=== PATIENT | female | born 1970 | race Caucasian/White ===

== ENCOUNTER 2016-11-27 20:45 | Emergency (ER) | payer MEDICAID ==
[2016-11-27 20:56] VITALS: BP 126/73
--- NOTE | 2016-11-27 21:39 | EDM.PDOC ---
ED HPI GENERAL MEDICAL PROBLEM - General Chief Complaint: Lower Extremity Injury/Pain Stated Complaint: R ANKLE PAIN Time Seen by Provider: 11/27/16 21:25 Source of Information: Reports: Patient History Limitations: Reports: No Limitations - History of Present Illness INITIAL COMMENTS - FREE TEXT/NARRATIVE: 46 yo female had R ankle surgery 2 yrs ago in [place] after trauma. This past weekend was at a concert outdoors that required her to stand a lot. Has had pain and swelling since then. Does not recall injury, but was drinking some alcohol. Has not been to her primary care provider or urgent care for this earlier. Onset Date: 11/25/16 Duration: Day(s): Location: Reports: Lower Extremity, Right Quality: Reports: Ache Severity: Mild Improves with: Reports: Immobilization, Rest Worsens with: Reports: Movement Context: Reports: Other (surgery 2 yrs ago, not aware of new injury) Associated Symptoms: Reports: No Other Symptoms Treatments [employer]OR[employer] UMPIRE: Reports: Other (see below) (None) Right Ankle Pain Score (Numeric/FACES): 10 - Related Data Allergies Allergy/AdvReac Type Severity Reaction Status Date / Time Penicillins Allergy Severe Anaphylactic Verified 11/27/16 20:57 Shock peanut Allergy Airway Verified 11/27/16 20:57 Tightness morphine AdvReac Nausea and Verified 11/27/16 20:57 Vomiting Home Meds: Home Meds Albuterol Sulfate [Proair Hfa] 2 puff IH Q6HR PRN 02/04/13 [History] Aspirin 81 mg PO DAILY 03/14/16 [History] Ibuprofen [Motrin] 600 mg PO Q8H PRN 05/17/16 [History] atorvaSTATin [Lipitor] 20 mg PO BEDTIME 05/17/16 [History] Albuterol/Ipratropium [DuoNeb 3.0-0.5 MG/3 ML] 3 ml IN ASDIRECTED 06/16/16 [ History] Past Medical History - Past Health History Medical/Surgical History: Denies Medical/Surgical History HEENT History: Reports: Sinusitis Other HEENT History: brain surgery Cardiovascular History: Reports: Other (See Below) Other Cardiovascular History: abnormal EKG, to have echocardiogram tomorrow Respiratory History: Reports: Asthma 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: , Prolapsed Uterus Musculoskeletal History: Reports: Fracture Neurological History: Reports: Brain Injury, Concussion Psychiatric History: Reports: PTSD Endocrine/Metabolic History: Reports: Obesity/BMI 30+ Hematologic History: Reports: Blood Transfusion(s) Oncologic (Cancer) History: Reports: Ovarian - Infectious Disease History Infectious Disease History: Reports: Chicken Pox, Herpes, Influenza, Mononucleosis - Past Surgical History HEENT Surgical History: Reports: Naso-Sinus Surgery Other HEENT Surgeries/Procedures: BRAIN Female Surgical History: Reports: Section 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, Other (See Below) Musculoskeletal Surgical History: Reports: ORIF Other Musculoskeletal Surgeries/Procedures:: R TIB/FIB FX WITH SURGICAL REPAIR Oncologic Surgical History: Reports: Other (See Below) Social & Family History - Family History Family Medical History: Noncontributory - Tobacco Use Smoking Status *Q: Current Every Day Smoker Years of Tobacco use: 20 Packs/Tins Daily: 0.2 Used Tobacco, but Quit: Yes Month Tobacco Last Used: Apr. Second Hand Smoke Exposure: No - Caffeine Use Caffeine Use: Reports: Coffee, Soda, Tea - Alcohol Use Days Per Week of Alcohol Use: 1 Number of Drinks Per Day: 2 Total Drinks Per Week: 2 - Recreational Drug Use Recreational Drug Use: No Review of Systems - Review of Systems Review Of Systems: See Below Constitutional: Reports: No Symptoms Musculoskeletal: Reports: Joint Pain (R ankle swollen compared to the L ankle. No erythema. No ecchymosis. ) Skin: Reports: Other (well healed surgical scar over the ankle. ) Neurological: Reports: No Symptoms Psychiatric: Reports: No Symptoms ED EXAM, GENERAL - Physical Exam Exam: See Below Exam Limited By: No Limitations General Appearance: Alert, WD/WN, No Apparent Distress Extremities: Pedal Edema (R ankle only), Increased Warmth (slight increased warmth to the R ankle. ). No: Redness Neurological: Alert, Oriented, CN II-XII Intact, Normal Cognition, No Motor/ Sensory Deficits Psychiatric: Normal Affect, Normal Mood Skin Exam: Warm, Dry, Intact, Normal Color, No Rash, Other (well healed surgical scar to the medial R ankle. ) Lymphatic: No Adenopathy Course - Vital Signs Text/Narrative:: R ankle X-ray-no acute changes. Last Recorded V/S: Last Vital Signs Temp 37.4 C 11/27/16 20:54 Pulse 94 11/27/16 20:54 Resp 15 11/27/16 20:54 BP 126/73 11/27/16 20:54 Pulse Ox 97 11/27/16 20:54 - Orders/Labs/Meds Orders: Active Orders 24 hr Category Date Time Status Ankle Min 3V Rt [CR] Stat Exams 11/27/16 21:32 Taken Departure - Departure Time of Disposition: 22:10 Disposition: Home, Self-Care 01 Condition: Good Clinical Impression: Right ankle strain Qualifiers: Encounter type: initial encounter Qualified Code(s): S96.911A - Strain of unspecified muscle and tendon at ankle and foot level, right foot, initial encounter - Discharge Information Referrals: Alma Flores CNM [Primary Care Provider] - Forms: ED Department Discharge Care Plan Goals: GOMEZ for support/compression. Ibuprofen 600 mg every 6 hrs with food. Elevate. F/ U with your orthopedic doctor for recheck, take X-ray to appt. - My Orders Last 24 Hours: My Active Orders 11/27/16 21:32 Ankle Min 3V Rt [CR] Stat - Assessment/Plan Last 24 Hours: My Active Orders 11/27/16 21:32 Ankle Min 3V Rt [CR] Stat
--- NOTE | 2016-11-28 09:45 | CR ---
Right ankle There is degenerative joint space loss throughout the ankle. There is spurring of the medial malleol us. There is lateral soft tissue swelling. There is no evidence of fracture. There is a calcaneal sp ur. Impression: 1. Lateral soft tissue swelling without fracture. 2. Moderate osteoarthritis.
== END 2016-11-27 22:22 | disposition home or self-care (01) ==
LOC: JP.ED 20:45
DX: S66.911A Strain of unspecified muscle, fascia and tendon at wrist and hand level, right hand, initial encounter (principal); F17.210 Nicotine dependence, cigarettes, uncomplicated; J45.909 Unspecified asthma, uncomplicated; E66.9 Obesity, unspecified; Z88.5 Allergy status to narcotic agent; Z79.82 Long term (current) use of aspirin; Z79.899 Other long term (current) drug therapy; Z98.890 Other specified postprocedural states; Z91.018 Allergy to other foods; Z88.0 Allergy status to penicillin; Z91.010 Allergy to peanuts; X50.1XXA Overexertion from prolonged static or awkward postures, initial encounter
CPT/HCPCS: 73610-26-RT; 73610-RT; 99284

== ENCOUNTER 2017-09-22 16:57 | Emergency (ER) | payer MEDICAID ==
[2017-09-22] MEDS ORDERED: Albuterol/Ipratropium 3.0-0.5 MG/3 ML Neb Soln NEB ONE (17:06)
[2017-09-22 17:14] VITALS: BP 149/95
--- NOTE | 2017-09-22 17:44 | EDM.PDOC ---
ED HPI GENERAL MEDICAL PROBLEM - General Chief Complaint: Asthma Stated Complaint: ASTHMA ATTACK, SOB Time Seen by Provider: 09/22/17 17:15 Source of Information: Reports: Patient History Limitations: Reports: No Limitations - History of Present Illness INITIAL COMMENTS - FREE TEXT/NARRATIVE: 47-year-old female who has had a long history of asthma, allergies to animals and environmental allergies possibly has had an increase in asthma over the past several weeks. She was placed on a course of prednisone a few weeks ago and did respond but has started getting worse again over the last 5 days, ran out of her albuterol inhaler 3 days ago and is very wheezy. Persistent tight cough as well. No fevers or chills, no chest pain, no nausea or vomiting. She has stopped smoking. Onset: Gradual Severity: Moderate Associated Symptoms: Reports: No Other Symptoms - Related Data Allergies Allergy/AdvReac Type Severity Reaction Status Date / Time Penicillins Allergy Severe Anaphylactic Verified 09/22/17 17:14 Shock peanut Allergy Airway Verified 09/22/17 17:14 Tightness morphine AdvReac Nausea and Verified 09/22/17 17:14 Vomiting Home Meds: Home Meds Albuterol Sulfate [Proair Hfa] 2 puff IH Q6HR PRN 02/04/13 [History] Ibuprofen [Motrin] 600 mg PO Q8H PRN 05/17/16 [History] Albuterol/Ipratropium [DuoNeb 3.0-0.5 MG/3 ML] 3 ml IN ASDIRECTED 06/16/16 [ History] Past Medical History - Past Health History Medical/Surgical History: Denies Medical/Surgical History HEENT History: Reports: Sinusitis Other HEENT History: brain surgery Cardiovascular History: Reports: Other (See Below) Other Cardiovascular History: abnormal EKG, to have echocardiogram tomorrow Respiratory History: Reports: Asthma 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: , Prolapsed Uterus Musculoskeletal History: Reports: Fracture Neurological History: Reports: Brain Injury, Concussion Psychiatric History: Reports: PTSD Endocrine/Metabolic History: Reports: Obesity/BMI 30+ Hematologic History: Reports: Blood Transfusion(s) Oncologic (Cancer) History: Reports: Ovarian - Infectious Disease History Infectious Disease History: Reports: Chicken Pox, Herpes, Influenza, Mononucleosis - Past Surgical History HEENT Surgical History: Reports: Naso-Sinus Surgery Other HEENT Surgeries/Procedures: BRAIN Female Surgical History: Reports: Section 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, Other (See Below) Musculoskeletal Surgical History: Reports: ORIF Other Musculoskeletal Surgeries/Procedures:: R TIB/FIB FX WITH SURGICAL REPAIR Oncologic Surgical History: Reports: Other (See Below) Social & Family History - Family History Family Medical History: Noncontributory - Tobacco Use Smoking Status *Q: Former Smoker Used Tobacco, but Quit: Yes Month/Year Tobacco Last Used: 0 - Caffeine Use Caffeine Use: Reports: Coffee, Soda, Tea - Recreational Drug Use Recreational Drug Use: No ED ROS GENERAL - Review of Systems Review Of Systems: See Below Constitutional: Denies: Fever, Chills HEENT: Denies: Throat Pain Respiratory: Reports: Shortness of Breath, Cough. Denies: Sputum, Hemoptysis Cardiovascular: Denies: Chest Pain GI/Abdominal: Denies: Abdominal Pain, Nausea, Vomiting Skin: Reports: No Symptoms Neurological: Reports: No Symptoms. Denies: Headache ED EXAM, GENERAL - Physical Exam Exam: See Below Exam Limited By: No Limitations General Appearance: Alert, Anxious Throat/Mouth: Normal Inspection Head: Atraumatic Respiratory/Chest: No Respiratory Distress (Mild increased respiratory effort but not distressed), Wheezing (Diffuse expiratory wheezes are present) Cardiovascular: Regular Rate, Rhythm. No: Tachycardia Neurological: Alert, Oriented Skin Exam: Warm, Dry Course - Vital Signs Last Recorded V/S: Last Vital Signs Temp 95.5 F 09/22/17 17:13 Pulse 93 09/22/17 17:13 Resp 16 09/22/17 17:13 BP 149/95 H 09/22/17 17:13 Pulse Ox 99 09/22/17 17:13 - Orders/Labs/Meds Orders: Active Orders 24 hr Category Date Time Status RT Aerosol Therapy [RC] ASDIRECTED Care 09/22/17 17:06 Active Meds: Medications Discontinued Medications Generic Name Dose Route Start Last Admin Trade Name Freq PRN Reason Stop Dose Admin Albuterol/Ipratropium 3 ml 09/22/17 17:06 09/22/17 17:12 Duoneb 3.0-0.5 Mg/3 Ml NEB 09/22/17 17:07 3 ml ONETIME ONE Administration - Re-Assessments/Exams Free Text/Narrative Re-Assessment/Exam: 05/20/18 17:42 Patient was given a DuoNeb and responded very well, most wheezing resolved and she required no extra effort. She'll be discharged on a Medrol Dosepak and albuterol inhaler but needs to find out what is the trigger, may need allergy testing or further evaluation. Departure - Departure Time of Disposition: 17:49 Disposition: Home, Self-Care 01 Condition: Good Clinical Impression: Chronic asthma with acute exacerbation Qualifiers: Asthma severity: moderate Asthma persistence: persistent Qualified Code(s): J45.41 - Moderate persistent asthma with (acute) exacerbation - Discharge Information Instructions: Asthma, Adult, [id number] Referrals: PCP,None [Primary Care Provider] - Forms: ED Department Discharge Care Plan Goals: Continue your current medications, use Medrol Dosepak to suppress asthma and also the inhaler as needed. Return anytime if worsening or concerns, or consider rechecking in 2-3 days if not improving satisfactorily. - My Orders Last 24 Hours: My Active Orders 09/22/17 17:06 RT Aerosol Therapy [RC] ASDIRECTED - Assessment/Plan Last 24 Hours: My Active Orders 09/22/17 17:06 RT Aerosol Therapy [RC] ASDIRECTED
== END 2017-09-22 17:49 | disposition home or self-care (01) ==
LOC: JP.ED 16:57
DX: J45.41 Moderate persistent asthma with (acute) exacerbation (principal); Z87.891 Personal history of nicotine dependence; Z88.0 Allergy status to penicillin; Z91.010 Allergy to peanuts; Z88.5 Allergy status to narcotic agent
CPT/HCPCS: 94640; 99285; J7620

== ENCOUNTER 2018-06-29 18:21 | Emergency (ER) | payer MEDICAID ==
[2018-06-29] MEDS ORDERED: Albuterol/Ipratropium 3.0-0.5 MG/3 ML Neb Soln NEB ONE (18:25)
[2018-06-29] MEDS ORDERED: Sodium Chloride 0.9% 10 ML Syringe FLUSH PRN ×2 (18:27)
--- NOTE | 2018-06-29 18:49 | EDM.PDOC ---
ED HPI GENERAL MEDICAL PROBLEM - General Chief Complaint: Respiratory Problem Stated Complaint: ASTHMA ATTACK Time Seen by Provider: 06/29/18 18:27 Source of Information: Reports: Patient, Family, RN Notes Reviewed History Limitations: Reports: No Limitations - History of Present Illness INITIAL COMMENTS - FREE TEXT/NARRATIVE: 48-year-old female presents to the emergency department today with complaint of shortness of breath, she has a known history of asthma has been out of her breathing medications for about 24 hours, limited history and physical secondary to respiratory distress - Related Data Allergies Allergy/AdvReac Type Severity Reaction Status Date / Time Penicillins Allergy Severe Anaphylactic Verified 06/29/18 18:31 Shock peanut Allergy Airway Verified 06/29/18 18:31 Tightness morphine AdvReac Nausea and Verified 06/29/18 18:31 Vomiting Home Meds: Home Meds Albuterol Sulfate [Proair Hfa] 2 puff IH Q6HR PRN 02/04/13 [History] Cetirizine [ZyrTEC] 1 tab PO DAILY 03/30/18 [History] Past Medical History HEENT History: Reports: Sinusitis Other HEENT History: brain surgery Cardiovascular History: Reports: Other (See Below) Other Cardiovascular History: abnormal EKG Respiratory History: Reports: Asthma Gastrointestinal History: Reports: Other (See Below) Other Gastrointestinal History: ulcers Genitourinary History: Reports: Urinary Incontinence 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: , Prolapsed Uterus Musculoskeletal History: Reports: Fracture Neurological History: Reports: Brain Injury, Concussion Psychiatric History: Reports: PTSD Endocrine/Metabolic History: Reports: Obesity/BMI 30+ Hematologic History: Reports: Blood Transfusion(s) Oncologic (Cancer) History: Reports: Ovarian - Infectious Disease History Infectious Disease History: Reports: Chicken Pox - Past Surgical History Head Surgeries/Procedures: Reports: None HEENT Surgical History: Reports: Naso-Sinus Surgery Other HEENT Surgeries/Procedures: BRAIN Cardiovascular Surgical History: Reports: None Respiratory Surgical History: Reports: None GI Surgical History: Reports: Hernia, Abdominal Female Surgical History: Reports: Section, Other (See Below) Other Female Surgeries/Procedures: bladder repair. 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 Musculoskeletal Surgical History: Reports: ORIF Other Musculoskeletal Surgeries/Procedures:: R TIB/FIB FX WITH SURGICAL REPAIR Oncologic Surgical History: Reports: None Social & Family History - Family History Family Medical History: Noncontributory - Tobacco Use Smoking Status *Q: Current Every Day Smoker Years of Tobacco use: 34 Packs/Tins Daily: 0.5 - Caffeine Use Caffeine Use: Reports: Coffee - Recreational Drug Use Recreational Drug Use: No ED ROS GENERAL - Review of Systems Review Of Systems: ROS reveals no pertinent complaints other than HPI. ED EXAM, GENERAL - Physical Exam Exam: See Below Free Text/Narrative:: On initial exam breath sounds severely decreased limited air movement no wheezing appreciated cardiovascular tachycardic rhythm S1 and S2 Exam Limited By: Respiratory Distress General Appearance: Moderate Distress Course - Vital Signs Last Recorded V/S: Last Vital Signs Temp 98.6 F 06/29/18 18:37 Pulse 105 H 06/29/18 18:37 Resp 16 06/29/18 18:37 BP Pulse Ox 95 06/29/18 18:37 - Orders/Labs/Meds Orders: Active Orders 24 hr Category Date Time Status Peripheral IV Care [RC] . DIRECTED Care 06/29/18 18:29 Inactive RT Aerosol Therapy [RC] ASDIRECTED Care 06/29/18 18:25 Active Sodium Chloride 0.9% [Saline Flush] Med 06/29/18 18:27 Active 10 ml FLUSH ASDIRECTED PRN Peripheral IV Insertion Adult [OM.PC] Urgent Oth 06/29/18 18:27 Ordered Medication Orders Sodium Chloride (Saline Flush) 10 ml FLUSH ASDIRECTED PRN PRN Reason: Keep Vein Open Labs: Laboratory Tests 06/29/18 06/29/18 Range/Units 18:41 18:41 WBC 7.7 (4.5-11.0) K/uL RBC 4.91 (3.30-5.50) M/uL Hgb 13.7 (12.0-15.0) g/dL Hct 42.1 (36.0-48.0) % MCV 86 (80-98) fL MCH 28 (27-31) pg MCHC 33 (32-36) % Plt Count 259 (150-400) K/uL Neut % (Auto) 45 (36-66) % Lymph % (Auto) 41 (24-44) % [place] % (Auto) 7 H (2-6) % Eos % (Auto) 6 H (2-4) % Baso % (Auto) 1 (0-1) % Sodium 145 (140-148) mmol/L Potassium 4.1 (3.6-5.2) mmol/L Chloride 107 (100-108) mmol/L Carbon Dioxide 26 (21-32) mmol/L Anion Gap 11.8 (5.0-14.0) mmol/L BUN 14 (7-18) mg/dL Creatinine 1.0 (0.6-1.0) mg/dL Est Cr Clr Drug Dosing 60.70 mL/min Estimated GFR (MDRD) 60 (>60) Glucose 118 H (74-106) mg/dL Calcium 9.5 (8.5-10.1) mg/dL Meds: Medications Generic Name Dose Route Start Last Admin Trade Name Freq PRN Reason Stop Dose Admin Sodium Chloride 10 ml 06/29/18 18:27 Saline Flush FLUSH ASDIRECTED PRN Keep Vein Open Discontinued Medications Generic Name Dose Route Start Last Admin Trade Name Freq PRN Reason Stop Dose Admin Albuterol/Ipratropium 3 ml 06/29/18 18:25 06/29/18 18:29 Duoneb 3.0-0.5 Mg/3 Ml NEB 06/29/18 18:26 3 ml ONETIME ONE Administration Sodium Chloride 10 ml 06/29/18 18:27 Saline Flush FLUSH ASDIRECTED PRN Keep Vein Open Departure - Departure Time of Disposition: 19:20 Disposition: Home, Self-Care 01 Condition: Fair Clinical Impression: Asthma exacerbation Qualifiers: Asthma severity: moderate Asthma persistence: persistent Qualified Code(s): J45.41 - Moderate persistent asthma with (acute) exacerbation - Discharge Information Referrals: PCP,None [Primary Care Provider] - Forms: ED Department Discharge Additional Instructions: Continue to use albuterol as needed for shortness breath, please follow-up with your primary care in the next 3-5 days if no improvement - My Orders Last 24 Hours: My Active Orders 06/29/18 18:27 Sodium Chloride 0.9% [Saline Flush] 10 ml FLUSH ASDIRECTED PRN Peripheral IV Insertion Adult [OM.PC] Urgent 06/29/18 18:29 Peripheral IV Care [RC] . DIRECTED - Assessment/Plan Last 24 Hours: My Active Orders 06/29/18 18:27 Sodium Chloride 0.9% [Saline Flush] 10 ml FLUSH ASDIRECTED PRN Peripheral IV Insertion Adult [OM.PC] Urgent 06/29/18 18:29 Peripheral IV Care [RC] . DIRECTED Plan: Assessment Acuity = acute Site and laterality = asthma exacerbation Etiology = unknown etiology Manifestations = none Location of injury = Home Lab values = CBC, BMP, chest x-ray all unremarkable Plan She had good improvement with DuoNeb provided reexamination no wheezing was appreciated refill of medications of albuterol for her neb treatment at home she does have refill of her other breathing treatment however they will not be available to the first of the month follow-up primary care 3-5 days if not better This note was dictated using [employer] voice recognition software please call with any questions on syntax or grammar.
--- NOTE | 2018-06-29 19:01 | CRLCR ---
INDICATION: Shortness of breath. TECHNIQUE: Chest 2 views. COMPARISON: 02/04/2016 FINDINGS: Cardiovascular and mediastinum: Heart size is normal. Pulmonary vasculature is normal. Mediastinum is within normal limits. Lungs and pleural spaces: Lungs are clear. No pleural effusion. No pneumothorax. Bones and soft tissues: No acute findings. Anterior end plate osteophytic changes in the lower thoracic spine. IMPRESSION: No acute pulmonary process. Dictated by Bismark Etienne MD @ 06/29/2018 6:59:29 PM Dictated by: Bismark Etienne MD @ 06/29/2018 18:59:38 (Electronically Signed)
== END 2018-06-29 19:47 | disposition home or self-care (01) ==
LOC: JP.ED 18:21
DX: J45.41 Moderate persistent asthma with (acute) exacerbation (principal); E66.9 Obesity, unspecified; F17.210 Nicotine dependence, cigarettes, uncomplicated; Z88.0 Allergy status to penicillin; Z91.010 Allergy to peanuts; Z88.5 Allergy status to narcotic agent
CPT/HCPCS: 36415; 71046; 80048; 85025; 94640; 99285-25; J7620-GY

== ENCOUNTER 2018-08-19 18:55 | Emergency (ER) | payer MEDICAID ==
[2018-08-19 19:15] VITALS: BP 145/78
--- NOTE | 2018-08-19 19:33 | EDM.PDOC ---
ED HPI GENERAL MEDICAL PROBLEM - General Chief Complaint: Abdominal Pain Stated Complaint: ABD PAIN Time Seen by Provider: 08/19/18 19:20 Source of Information: Reports: Patient, Old Records, RN History Limitations: Reports: No Limitations - History of Present Illness INITIAL COMMENTS - FREE TEXT/NARRATIVE: 48 yo female here with R sided abdominal pain that began this afternoon following a large BM. The BM was otherwise normal. No fever, nausea or vomiting. Her only abdominal surgery was a . She took nothing for the pain. The pain seems to wax and wane. Pain is increased with walking or coughing. Has not ever had colonoscopy. Not aware of a FHx of colon CA. Has had ovarian cysts in the past. Had a tubal ligation with her last . Not currently sexually active. 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 (see below) (none) Lower Abdomen Pain Score (Numeric/FACES): 10 - Related Data Allergies Allergy/AdvReac Type Severity Reaction Status Date / Time Penicillins Allergy Severe Anaphylactic Verified 08/19/18 19:15 Shock peanut Allergy Airway Verified 08/19/18 19:15 Tightness morphine AdvReac Nausea and Verified 08/19/18 19:15 Vomiting Home Meds: Home Meds Albuterol Sulfate [Proair Hfa] 2 puff IH Q6HR PRN 02/04/13 [History] Cetirizine [ZyrTEC] 1 tab PO DAILY 03/30/18 [History] Past Medical History - Past Health History Medical/Surgical History: Denies Medical/Surgical History HEENT History: Reports: Sinusitis Other HEENT History: brain surgery Cardiovascular History: Reports: Other (See Below) Other Cardiovascular History: abnormal EKG Respiratory History: Reports: Asthma Gastrointestinal History: Reports: Other (See Below) Other Gastrointestinal History: ulcers Genitourinary History: Reports: Urinary Incontinence 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 OF 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 History: Reports: , Prolapsed Uterus Musculoskeletal History: Reports: Fracture Neurological History: Reports: Brain Injury, Concussion Psychiatric History: Reports: PTSD Endocrine/Metabolic History: Reports: Obesity/BMI 30+ Hematologic History: Reports: Blood Transfusion(s) Oncologic (Cancer) History: Reports: Ovarian - Infectious Disease History Infectious Disease History: Reports: Chicken Pox - Past Surgical History Head Surgeries/Procedures: Reports: None HEENT Surgical History: Reports: Naso-Sinus Surgery Other HEENT Surgeries/Procedures: BRAIN Cardiovascular Surgical History: Reports: None Respiratory Surgical History: Reports: None GI Surgical History: Reports: Hernia, Abdominal Female Surgical History: Reports: Section, Other (See Below) Other Female Surgeries/Procedures: bladder repair. 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 Musculoskeletal Surgical History: Reports: ORIF Other Musculoskeletal Surgeries/Procedures:: R TIB/FIB FX WITH SURGICAL REPAIR Oncologic Surgical History: Reports: None Social & Family History - Family History Family Medical History: Noncontributory - Tobacco Use Smoking Status *Q: Current Status Unknown - Caffeine Use Caffeine Use: Reports: Coffee - Recreational Drug Use Drug Use in Last 12 Months: No ED ROS GENERAL - Review of Systems Review Of Systems: See Below Constitutional: Reports: No Symptoms HEENT: Reports: No Symptoms Respiratory: Reports: No Symptoms Cardiovascular: Reports: No Symptoms Endocrine: Reports: No Symptoms GI/Abdominal: Reports: Abdominal Pain. Denies: Bloody Stool, Constipation, Diarrhea, Decreased Appetite, Distension, Hematemesis, Hematochezia, Melena, Nausea, Vomiting : Reports: No Symptoms Musculoskeletal: Reports: No Symptoms Skin: Reports: No Symptoms Neurological: Reports: No Symptoms Psychiatric: Reports: No Symptoms ED EXAM, GI/ABD - Physical Exam Exam: See Below Exam Limited By: No Limitations General Appearance: Alert, WD/WN, No Apparent Distress Eyes: Bilateral: Normal Appearance Ears: Normal External Exam, Normal Canal, Hearing Grossly Normal Nose: Normal Inspection, No Blood Throat/Mouth: Normal Inspection, Normal Lips, Normal Oropharynx, Normal Voice, No Airway Compromise Head: Atraumatic, Normocephalic Neck: Normal Inspection Respiratory/Chest: No Respiratory Distress, Lungs Clear, Normal Breath Sounds, No Accessory Muscle Use Cardiovascular: Regular Rate, Rhythm, No Edema GI/Abdominal Exam: Normal Bowel Sounds, Soft, No Distention, Rebound (mild), Tender (suprapubic, RLQ and R lateral abdomen.). No: Non-Tender, Guarding, Rigid Back Exam: Normal Inspection. No: CVA Tenderness (R), CVA Tenderness (L) Extremities: Normal Inspection, Normal Range of Motion, Non-Tender, No Pedal Edema Neurological: Alert, Oriented, CN II-XII Intact, Normal Cognition, No Motor/ Sensory Deficits Psychiatric: Normal Affect, Normal Mood Skin Exam: Warm, Dry, Intact, Normal Color, No Rash Lymphatic: No Adenopathy Course - Vital Signs Last Recorded V/S: Last Vital Signs Temp 36.9 C 08/19/18 19:12 Pulse 94 08/19/18 19:12 Resp 12 08/19/18 19:12 BP 145/78 H 08/19/18 19:12 Pulse Ox 97 08/19/18 19:12 - Orders/Labs/Meds Orders: Active Orders 24 hr Category Date Time Status Iopamidol [Isovue-300 (61%)] Med 08/19/18 20:30 Active 130 ml IV . DIRECTED Sodium Chloride 0.9% [Normal Saline] 80 ml Med 08/19/18 20:30 Active IV ASDIRECTED Sodium Chloride 0.9% [Saline Flush] Med 08/19/18 20:07 Active 10 ml FLUSH ASDIRECTED PRN Saline Lock Insert [OM.PC] Routine Oth 08/19/18 20:07 Ordered Medication Orders Sodium Chloride (Normal Saline) 80 mls @ 3 mls/sec IV ASDIRECTED ALIN Last Admin: 08/19/18 20:39 Dose: 3 mls/sec Iopamidol (Isovue-300 (61%)) 130 ml IV . DIRECTED ALIN Last Admin: 08/19/18 20:39 Dose: 130 ml Sodium Chloride (Saline Flush) 10 ml FLUSH ASDIRECTED PRN PRN Reason: Keep Vein Open Last Admin: 08/19/18 20:39 Dose: 10 ml Labs: Laboratory Tests 08/19/18 08/19/18 08/19/18 Range/Units 19:27 19:38 19:38 WBC 12.5 H (4.5-11.0) K/uL RBC 4.85 (3.30-5.50) M/uL Hgb 13.5 (12.0-15.0) g/dL Hct 42.1 (36.0-48.0) % MCV 87 (80-98) fL MCH 28 (27-31) pg MCHC 32 (32-36) % Plt Count 302 (150-400) K/uL Sodium 138 L (140-148) mmol/L Potassium 3.6 (3.6-5.2) mmol/L Chloride 103 (100-108) mmol/L Carbon Dioxide 26 (21-32) mmol/L Anion Gap 12.6 (5.0-14.0) mmol/L BUN 14 (7-18) mg/dL Creatinine 0.8 (0.6-1.0) mg/dL Est Cr Clr Drug Dosing 75.88 mL/min Estimated GFR (MDRD) > 60 (>60) Glucose 94 (74-106) mg/dL Calcium 9.1 (8.5-10.1) mg/dL C-Reactive Protein 0.16 (0.0-0.3) mg/dL Urine Color Yellow Urine Appearance Cloudy Urine pH 5.0 (4.5-8.0) Ur Specific [place] 1.020 (1.008-1.030) Urine Protein Trace (NEGATIVE) mg/dL Urine Glucose (UA) Normal (NEGATIVE) mg/dL Urine Ketones Negative (NEGATIVE) mg/dL Urine Occult Blood Trace (NEGATIVE) Urine Nitrite Negative (NEGATIVE) Urine Bilirubin Small (NEGATIVE) Urine Urobilinogen 1 (NORMAL) mg/dL Ur Leukocyte Esterase Negative (NEGATIVE) Urine RBC 0-5 (0-5) Urine WBC 0-5 (0-5) Ur Epithelial Cells Many Amorphous Sediment Few Urine Bacteria Moderate Urine Mucus Few Meds: Medications Generic Name Dose Route Start Last Admin Trade Name Abdullahi PRN Reason Stop Dose Admin Sodium Chloride 80 mls @ 3 mls/sec 08/19/18 20:30 08/19/18 20:39 Normal Saline IV 3 mls/sec ASDIRECTED ALIN Administration Iopamidol 130 ml 08/19/18 20:30 08/19/18 20:39 Isovue-300 (61%) IV 130 ml . DIRECTED ALIN Administration Sodium Chloride 10 ml 08/19/18 20:07 08/19/18 20:39 Saline Flush FLUSH 10 ml ASDIRECTED PRN Administration Keep Vein Open Discontinued Medications Generic Name Dose Route Start Last Admin Trade Name Abdullahi PRN Reason Stop Dose Admin Ketorolac Tromethamine 60 mg 08/19/18 19:26 08/19/18 19:50 Toradol IM 08/19/18 19:27 60 mg ONETIME ONE Administration - Radiology Interpretation Free Text/Narrative:: Abd/pelvis CT with IV contrast-R ovarian cyst, mildly enlarged appendix. CT Results Date: 08/19/18 Departure - Departure Time of Disposition: 21:33 Disposition: Home, Self-Care 01 Condition: Fair Clinical Impression: Ovarian cyst Qualifiers: Laterality: right Qualified Code(s): N83.201 - Unspecified ovarian cyst, right side - Discharge Information *PRESCRIPTION DRUG MONITORING PROGRAM REVIEWED*: No *COPY OF PRESCRIPTION DRUG MONITORING REPORT IN PATIENT ANTONIO: No Instructions: Ovarian Cyst, [id number] Referrals: Alma Flores CNM [Primary Care Provider] - Forms: ED Department Discharge Additional Instructions: Take acetaminophen 1000 mg every 6 hrs as needed. Ibuprofen 600 mg every 6 hrs with food as needed, next dose after 2:30 am tonight. NPO after midnight. Recheck with your provider tomorrow morning. - My Orders Last 24 Hours: My Active Orders 08/19/18 20:07 Sodium Chloride 0.9% [Saline Flush] 10 ml FLUSH ASDIRECTED PRN Saline Lock Insert [OM.PC] Routine 08/19/18 20:30 Iopamidol [Isovue-300 (61%)] 130 ml IV . DIRECTED Sodium Chloride 0.9% [Normal Saline] 80 ml IV ASDIRECTED - Assessment/Plan Last 24 Hours: My Active Orders 08/19/18 20:07 Sodium Chloride 0.9% [Saline Flush] 10 ml FLUSH ASDIRECTED PRN Saline Lock Insert [OM.PC] Routine 08/19/18 20:30 Iopamidol [Isovue-300 (61%)] 130 ml IV . DIRECTED Sodium Chloride 0.9% [Normal Saline] 80 ml IV ASDIRECTED
[2018-08-19] MEDS: Ketorolac 60 MG/2 ML SDV IM ONE (19:50)
[2018-08-19] MEDS: Sodium Chloride 0.9% 80 ML IV SCH (20:39)
[2018-08-19] MEDS: Iopamidol 612 MG/ML 150 ML Bottle IV SCH (20:39)
[2018-08-19] MEDS: Sodium Chloride 0.9% 10 ML Syringe FLUSH PRN (20:39)
--- NOTE | 2018-08-19 21:27 | CRLCT ---
INDICATION: Right-sided abdominal pain TECHNIQUE: CT abdomen and pelvis acquired with 130 cc Isovue-300 intravenous contrast. COMPARISON: Abdomen and pelvis CT 02/12/2018 FINDINGS: Lower chest: Stable 3 millimeter subpleural nodule left lower lobe. Calcified granuloma right lower lobe. Liver: Unremarkable. Normal in size and attenuation. No masses. Gallbladder and bile ducts: Unremarkable. No stones or inflammation. No biliary dilatation. Pancreas: Unremarkable. No mass or inflammation. Spleen: Unremarkable. Normal in size. No masses. Adrenal glands: Right adrenal nodule measuring 9 millimeters, no change. Kidneys: Unremarkable. No masses, stones, or hydronephrosis. GI tract: The stomach is unremarkable. There are no dilated loops of large or small intestine. The appendix is mildly prominent measuring 9 millimeters although without definite adjacent inflammation. Vasculature: Unremarkable. Pelvis: The bladder is unremarkable the uterus is anteverted. Note is made of some high density along the margin of the right ovary, a right ovarian cyst measuring 2.1 centimeters and mildly increased density fluid extending from the right adnexa into the pelvic cul-de-sac. Bones: Mild degenerative disc disease lumbar spine. IMPRESSION: 1. Right ovarian cyst measuring 2.1 centimeters with right ovarian hyperemia and some high-density fluid in the right adnexa extending to the pelvic cul-de-sac. Appearance suggests minimal adjacent hemoperitoneum, most commonly secondary to hemorrhagic cyst rupture in a non- patient. 2. Mild dilation of the appendix. This is a bit equivocal although subjectively this is more likely physiologic for this patient as the appendix was mildly dilated on the 2018 examination as well and no clear localizing inflammation is seen. 3. Stable right adrenal nodule. Please note that all CT scans at this facility use dose modulation, iterative reconstruction, and/or weight-based dosing when appropriate to reduce radiation dose to as low as reasonably achievable. Dictated by Beto Vega MD @ Aug 19 2018 9:13PM Signed by Dr. Beto Vega @ Aug 19 2018 9:25PM
== END 2018-08-19 21:44 | disposition home or self-care (01) ==
LOC: JP.ED 18:55
DX: N83.201 Unspecified ovarian cyst, right side (principal); Z88.0 Allergy status to penicillin; Z91.010 Allergy to peanuts
CPT/HCPCS: 36415; 74177; 80048; 81001; 85027; 86140; 96372; 99284; J1885; J7030

== ENCOUNTER 2018-12-11 20:54 | Emergency (ER) | payer MEDICAID ==
[2018-12-11] MEDS ORDERED: Albuterol 0.083% 2.5 MG/3 ML Neb Soln NEB ONE (21:16)
--- NOTE | 2018-12-11 22:05 | EDM.PDOC ---
ED HPI GENERAL MEDICAL PROBLEM - General Chief Complaint: Respiratory Problem Stated Complaint: TROUBLE BREATHING Time Seen by Provider: 12/11/18 22:09 Source of Information: Reports: Patient History Limitations: Reports: No Limitations - History of Present Illness INITIAL COMMENTS - FREE TEXT/NARRATIVE: pt arrived with a history of progressive wheezing. She feels like her inhaler has run out earlier than it should. She feels like it was not completely full when she got it. Onset: Today, Other (pt got very tight today. She does have some kittens in the house which she feels may have her to get quite tight. ) Duration: Hour(s): Location: Reports: Chest Associated Symptoms: Reports: Cough, Shortness of Breath, Other (pt is very wheezy. ) - Related Data Allergies Allergy/AdvReac Type Severity Reaction Status Date / Time Penicillins Allergy Severe Anaphylactic Verified 12/11/18 21:06 Shock peanut Allergy Airway Verified 12/11/18 21:06 Tightness morphine AdvReac Nausea and Verified 12/11/18 21:06 Vomiting Home Meds: Home Meds Albuterol Sulfate [Proair Hfa] 2 puff IH Q6HR PRN 02/04/13 [History] Cetirizine [ZyrTEC] 1 tab PO DAILY 03/30/18 [History] Past Medical History - Past Health History Medical/Surgical History: Denies Medical/Surgical History HEENT History: Reports: Sinusitis Other HEENT History: brain surgery Cardiovascular History: Reports: Other (See Below) Other Cardiovascular History: abnormal EKG Respiratory History: Reports: Asthma, Bronchitis, Recurrent Gastrointestinal History: Reports: Other (See Below) Other Gastrointestinal History: ulcers Genitourinary History: Reports: Urinary Incontinence 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: , Prolapsed Uterus Musculoskeletal History: Reports: Fracture Neurological History: Reports: Brain Injury, Concussion Psychiatric History: Reports: PTSD Endocrine/Metabolic History: Reports: Obesity/BMI 30+ Hematologic History: Reports: Blood Transfusion(s) Oncologic (Cancer) History: Reports: Ovarian - Infectious Disease History Infectious Disease History: Reports: Chicken Pox - Past Surgical History Head Surgeries/Procedures: Reports: None HEENT Surgical History: Reports: Naso-Sinus Surgery Other HEENT Surgeries/Procedures: BRAIN Cardiovascular Surgical History: Reports: None Respiratory Surgical History: Reports: None GI Surgical History: Reports: Hernia, Abdominal Female Surgical History: Reports: Section, Other (See Below) Other Female Surgeries/Procedures: bladder repair. 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 Musculoskeletal Surgical History: Reports: ORIF Other Musculoskeletal Surgeries/Procedures:: R TIB/FIB FX WITH SURGICAL REPAIR Oncologic Surgical History: Reports: None Social & Family History - Family History Family Medical History: Noncontributory - Tobacco Use Smoking Status *Q: Current Status Unknown Second Hand Smoke Exposure: No - Caffeine Use Caffeine Use: Reports: Coffee, Soda - Recreational Drug Use Recreational Drug Use: No ED ROS GENERAL - Review of Systems Review Of Systems: See Below Constitutional: Reports: No Symptoms HEENT: Reports: No Symptoms Respiratory: Reports: Shortness of Breath, Cough, Other ( pt arrived very tight in her chest and she feels like the inhaler is not full. ) Cardiovascular: Reports: No Symptoms Endocrine: Reports: No Symptoms GI/Abdominal: Reports: No Symptoms : Reports: No Symptoms Musculoskeletal: Reports: No Symptoms Skin: Reports: No Symptoms Neurological: Reports: No Symptoms ED EXAM, GENERAL - Physical Exam Exam: See Below Free Text/Narrative:: pt arrived very wheezy and feeling tight in her chest. She has niot had a fever. She has some kittens in her house hold that may have created a problem. Exam Limited By: No Limitations General Appearance: Alert, Anxious, Moderate Distress Ears: Normal TMs Nose: Normal Inspection Throat/Mouth: Normal Inspection Head: Atraumatic Neck: Normal Inspection Respiratory/Chest: Decreased Breath Sounds, Wheezing Cardiovascular: Regular Rate, Rhythm Course - Vital Signs Last Recorded V/S: Last Vital Signs Temp 36.2 C 12/11/18 21:14 Pulse 88 12/11/18 21:14 Resp 16 12/11/18 21:14 BP 140/81 12/11/18 21:14 Pulse Ox 98 12/11/18 21:14 - Orders/Labs/Meds Orders: Active Orders 24 hr Category Date Time Status RT Aerosol Therapy [RC] ASDIRECTED Care 12/11/18 21:16 Active COMPREHENSIVE METABOLIC PN,CMP [CHEM] Urgent Lab 12/11/18 21:32 Received Labs: Laboratory Tests 12/11/18 Range/Units 21:32 WBC 7.9 (4.5-11.0) K/uL RBC 4.68 (3.30-5.50) M/uL Hgb 13.4 (12.0-15.0) g/dL Hct 41.1 (36.0-48.0) % MCV 88 (80-98) fL MCH 29 (27-31) pg MCHC 33 (32-36) % Plt Count 279 (150-400) K/uL Neut % (Auto) 45 (36-66) % Lymph % (Auto) 39 (24-44) % [place] % (Auto) 7 H (2-6) % Eos % (Auto) 8 H (2-4) % Baso % (Auto) 1 (0-1) % Meds: Medications Discontinued Medications Generic Name Dose Route Start Last Admin Trade Name Freq PRN Reason Stop Dose Admin Albuterol 2.5 mg 12/11/18 21:16 12/11/18 21:23 Proventil Neb Soln NEB 12/11/18 21:17 2.5 mg ONETIME ONE Administration - Re-Assessments/Exams Free Text/Narrative Re-Assessment/Exam: 12/11/18 22:13 pt had lab work. She had a normal wbc. Her eosinophils were high.. She was given a albuterol neb and she was much more comfortable and did sound much better. 12/11/18 22:14 Departure - Departure Time of Disposition: 22:03 Disposition: Home, Self-Care 01 Condition: Fair Clinical Impression: Asthma exacerbation - Discharge Information Referrals: PCP,None [Primary Care Provider] - Forms: ED Department Discharge Care Plan Goals: albuterol premixed solution per instymed, albuterol inhaler 2 pufs tid prn for wheezing - My Orders Last 24 Hours: My Active Orders 12/11/18 21:16 RT Aerosol Therapy [RC] ASDIRECTED 12/11/18 21:32 COMPREHENSIVE METABOLIC PN,CMP [CHEM] Urgent - Assessment/Plan Last 24 Hours: My Active Orders 12/11/18 21:16 RT Aerosol Therapy [RC] ASDIRECTED 12/11/18 21:32 COMPREHENSIVE METABOLIC PN,CMP [CHEM] Urgent
[2018-12-11 22:17] VITALS: BP 140/81; PULSE 88
== END 2018-12-11 22:23 | disposition home or self-care (01) ==
LOC: JP.ED 20:54
DX: J45.901 Unspecified asthma with (acute) exacerbation (principal); Z88.0 Allergy status to penicillin; Z91.010 Allergy to peanuts; Z88.6 Allergy status to analgesic agent; Z79.51 Long term (current) use of inhaled steroids; Z88.5 Allergy status to narcotic agent
CPT/HCPCS: 36415; 80053; 85025; 94640; 99284-25

== ENCOUNTER 2019-05-10 16:09 | Emergency (ER) | payer MEDICAID ==
[2019-05-10 16:29] VITALS: BP 159/87; PULSE 96
--- NOTE | 2019-05-10 16:40 | EDM.PDOC ---
ED HPI GENERAL MEDICAL PROBLEM - General Chief Complaint: General Stated Complaint: flu Time Seen by Provider: 05/10/19 16:29 Source of Information: Reports: Patient History Limitations: Reports: No Limitations - History of Present Illness INITIAL COMMENTS - FREE TEXT/NARRATIVE: pt has been exposed to multiple cases of influ. She has a history of asthma and she has been out of her inhaler. She has been wheezy and coughing markedly Onset: Other (last nite. ) Duration: Hour(s): Location: Reports: Chest, Generalized Associated Symptoms: Reports: Cough, Fever/Chills, Shortness of Breath, Other ( pt is wheezing) - Related Data Allergies Allergy/AdvReac Type Severity Reaction Status Date / Time Penicillins Allergy Severe Anaphylactic Verified 05/10/19 16:28 Shock peanut Allergy Airway Verified 05/10/19 16:28 Tightness morphine AdvReac Nausea and Verified 05/10/19 16:28 Vomiting Home Meds: Home Meds Albuterol Sulfate [Proair Hfa] 2 puff IH Q6HR PRN 02/04/13 [History] Cetirizine [ZyrTEC] 1 tab PO DAILY 03/30/18 [History] Albuterol [Proventil Neb Soln] 1 dose INH Q4HR PRN 12/26/18 [History] Past Medical History - Past Health History Medical/Surgical History: Denies Medical/Surgical History HEENT History: Reports: Sinusitis Other HEENT History: brain surgery Cardiovascular History: Reports: Other (See Below) Other Cardiovascular History: abnormal EKG Respiratory History: Reports: Asthma, Bronchitis, Recurrent Gastrointestinal History: Reports: Other (See Below) Other Gastrointestinal History: ulcers Genitourinary History: Reports: Urinary Incontinence 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: , Prolapsed Uterus Musculoskeletal History: Reports: Fracture Neurological History: Reports: Brain Injury, Concussion Psychiatric History: Reports: PTSD Endocrine/Metabolic History: Reports: Obesity/BMI 30+ Hematologic History: Reports: Blood Transfusion(s) Oncologic (Cancer) History: Reports: Ovarian - Infectious Disease History Infectious Disease History: Reports: Chicken Pox - Past Surgical History Head Surgeries/Procedures: Reports: None HEENT Surgical History: Reports: Naso-Sinus Surgery Other HEENT Surgeries/Procedures: BRAIN Cardiovascular Surgical History: Reports: None Respiratory Surgical History: Reports: None GI Surgical History: Reports: Hernia, Abdominal Female Surgical History: Reports: Section, Other (See Below) Other Female Surgeries/Procedures: bladder repair. 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 Musculoskeletal Surgical History: Reports: ORIF Other Musculoskeletal Surgeries/Procedures:: R TIB/FIB FX WITH SURGICAL REPAIR Oncologic Surgical History: Reports: None Social & Family History - Family History Family Medical History: Noncontributory - Caffeine Use Caffeine Use: Reports: Coffee, Soda ED ROS GENERAL - Review of Systems Review Of Systems: See Below Constitutional: Reports: Fever, Chills, Malaise, Weakness HEENT: Reports: No Symptoms Respiratory: Reports: Shortness of Breath, Wheezing, Cough, Sputum Cardiovascular: Reports: No Symptoms Endocrine: Reports: No Symptoms GI/Abdominal: Reports: No Symptoms : Reports: No Symptoms Musculoskeletal: Reports: Muscle Pain Skin: Reports: No Symptoms ED EXAM, GENERAL - Physical Exam Exam: See Below Free Text/Narrative:: pt arrived with a cough and fever. Exam Limited By: No Limitations General Appearance: Alert, Anxious, Mild Distress Ears: Normal TMs Nose: Normal Inspection Throat/Mouth: Normal Inspection Head: Atraumatic Neck: Normal Inspection Respiratory/Chest: Decreased Breath Sounds, Rhonchi, Wheezing Cardiovascular: Regular Rate, Rhythm, Tachycardia GI/Abdominal: Soft, Non-Tender Rectal (Female) Exam: Deferred Back Exam: Normal Inspection Extremities: Normal Inspection Course - Vital Signs Last Recorded V/S: Last Vital Signs Temp 36.4 C 05/10/19 16:34 Pulse 96 05/10/19 16:34 Resp 18 05/10/19 16:34 BP 159/87 H 05/10/19 16:34 Pulse Ox 95 05/10/19 16:34 - Orders/Labs/Meds Labs: Laboratory Tests 05/10/19 Range/Units 17:01 WBC 6.7 (4.5-11.0) K/uL RBC 4.56 (3.30-5.50) M/uL Hgb 12.9 (12.0-15.0) g/dL Hct 40.0 (36.0-48.0) % MCV 88 (80-98) fL MCH 28 (27-31) pg MCHC 32 (32-36) % Plt Count 252 (150-400) K/uL Neut % (Auto) 49 (36-66) % Lymph % (Auto) 36 (24-44) % [place] % (Auto) 8 H (2-6) % Eos % (Auto) 5 H (2-4) % Baso % (Auto) 1 (0-1) % - Re-Assessments/Exams Free Text/Narrative Re-Assessment/Exam: 05/10/19 17:39 influ is neg. She is coughing and raising green sputum Departure - Departure Time of Disposition: 17:36 Disposition: Home, Self-Care 01 Condition: Fair Clinical Impression: Bronchitis - Discharge Information Referrals: Alma Flores CNM [Primary Care Provider] - Forms: ED Department Discharge Care Plan Goals: push fluids, cool mist humidifier, robitussin ac 2 tsp q6h prn for the cough, albuterol inhaler 2 puffs tid, zithromax Sepsis Event Note - Focused Exam Vital Signs: Vital Signs Temp Pulse Resp BP Pulse Ox 05/10/19 16:34 36.4 C 96 18 159/87 H 95 05/10/19 16:23 36.4 C 96 18 159/87 H 95 Date Exam was Performed: 05/10/19 Time Exam was Performed: 17:39
== END 2019-05-10 18:14 | disposition home or self-care (01) ==
LOC: JP.ED 16:09
DX: J40 Bronchitis, not specified as acute or chronic (principal); E66.9 Obesity, unspecified; Z68.35 Body mass index [BMI] 35.0-35.9, adult; Z88.0 Allergy status to penicillin; Z91.018 Allergy to other foods; Z88.5 Allergy status to narcotic agent
CPT/HCPCS: 36415; 85025; 87804; 87804-59; 99283

== ENCOUNTER 2019-05-23 12:40 | Emergency (ER) | payer MEDICAID ==
[2019-05-23] MEDS ORDERED: Albuterol 0.083% 2.5 MG/3 ML Neb Soln NEB ONE (12:58)
[2019-05-23 13:09] VITALS: BP 174/96; PULSE 88
--- NOTE | 2019-05-23 13:19 | EDM.PDOC ---
ED HPI GENERAL MEDICAL PROBLEM - General Chief Complaint: Respiratory Problem Stated Complaint: S.O.B. ASTHMA Time Seen by Provider: 05/23/19 13:10 Source of Information: Reports: Patient History Limitations: Reports: No Limitations - History of Present Illness INITIAL COMMENTS - FREE TEXT/NARRATIVE: pt arrived with a history of wheezing and sob. She is out of both her nebulizer solution and her inhaler. Pt was seen here about 2 weeks ago with a bronchitis. She has not seen her regular provider recently. Duration: Hour(s): Location: Reports: Chest Associated Symptoms: Reports: Cough, Shortness of Breath, Other ( she thinks the cold air made her asthma worse. ) Denies Pain Score (Numeric/FACES): 0 - Related Data Allergies Allergy/AdvReac Type Severity Reaction Status Date / Time Penicillins Allergy Severe Anaphylactic Verified 05/23/19 12:48 Shock peanut Allergy Airway Verified 05/23/19 12:48 Tightness morphine AdvReac Nausea and Verified 05/23/19 12:48 Vomiting Home Meds: Home Meds Albuterol Sulfate [Proair Hfa] 2 puff IH Q6HR PRN 02/04/13 [History] Cetirizine [ZyrTEC] 1 tab PO DAILY 03/30/18 [History] Albuterol [Proventil Neb Soln] 1 dose INH Q4HR PRN 12/26/18 [History] Past Medical History - Past Health History Medical/Surgical History: Denies Medical/Surgical History HEENT History: Reports: Sinusitis Other HEENT History: brain surgery Cardiovascular History: Reports: Other (See Below) Other Cardiovascular History: abnormal EKG Respiratory History: Reports: Asthma, Bronchitis, Recurrent Gastrointestinal History: Reports: Other (See Below) Other Gastrointestinal History: ulcers Genitourinary History: Reports: Urinary Incontinence [employer] REPA[employer]ER History: Reports: , Prolapsed Uterus Musculoskeletal History: Reports: Fracture Neurological History: Reports: Brain Injury, Concussion Psychiatric History: Reports: PTSD Endocrine/Metabolic History: Reports: Obesity/BMI 30+ Hematologic History: Reports: Blood Transfusion(s) Oncologic (Cancer) History: Reports: Ovarian - Infectious Disease History Infectious Disease History: Reports: Chicken Pox - Past Surgical History Head Surgeries/Procedures: Reports: None HEENT Surgical History: Reports: Naso-Sinus Surgery Other HEENT Surgeries/Procedures: BRAIN Cardiovascular Surgical History: Reports: None Respiratory Surgical History: Reports: None GI Surgical History: Reports: Hernia, Abdominal Female Surgical History: Reports: Section, Other (See Below) Other Female Surgeries/Procedures: bladder repair. 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 Musculoskeletal Surgical History: Reports: ORIF Other Musculoskeletal Surgeries/Procedures:: R TIB/FIB FX WITH SURGICAL REPAIR Oncologic Surgical History: Reports: None Social & Family History - Family History Family Medical History: Noncontributory - Tobacco Use Smoking Status *Q: Former Smoker Years of Tobacco use: 35 Packs/Tins Daily: 1 Used Tobacco, but Quit: Yes Month/Year Tobacco Last Used: Mar 2019 Second Hand Smoke Exposure: No - Caffeine Use Caffeine Use: Reports: Coffee, Tea - Alcohol Use Days Per Week of Alcohol Use: 0 - Recreational Drug Use Recreational Drug Use: No ED ROS GENERAL - Review of Systems Review Of Systems: See Below Constitutional: Reports: Other ( sob. ) HEENT: Reports: No Symptoms Respiratory: Reports: Wheezing, Cough Cardiovascular: Reports: No Symptoms Endocrine: Reports: No Symptoms GI/Abdominal: Reports: No Symptoms : Reports: No Symptoms Musculoskeletal: Reports: Other (pt is out of her neb solution and her inhaler. ) Skin: Reports: No Symptoms Neurological: Reports: No Symptoms Psychiatric: Reports: No Symptoms ED EXAM, GENERAL - Physical Exam Exam: See Below Free Text/Narrative:: pt arrived with sob from the cold air. She is out of her neb solution and her inhaler. Exam Limited By: No Limitations General Appearance: Alert, Anxious, Mild Distress Ears: Normal TMs Nose: Normal Inspection Throat/Mouth: Normal Inspection Head: Atraumatic Neck: Normal Inspection Respiratory/Chest: Decreased Breath Sounds, Wheezing Cardiovascular: Regular Rate, Rhythm GI/Abdominal: Soft, Non-Tender Rectal (Female) Exam: Deferred Back Exam: Normal Inspection Extremities: Normal Inspection Neurological: Alert, Oriented, Normal Cognition Course - Vital Signs Last Recorded V/S: Last Vital Signs Temp 36.6 C 05/23/19 13:08 Pulse 88 05/23/19 13:08 Resp 16 05/23/19 13:08 BP 174/96 H 05/23/19 13:08 Pulse Ox 94 L 05/23/19 13:08 - Orders/Labs/Meds Orders: Active Orders 24 hr Category Date Time Status RT Aerosol Therapy [RC] ASDIRECTED Care 05/23/19 12:59 Active Meds: Medications Discontinued Medications Generic Name Dose Route Start Last Admin Trade Name Abdullahi PRN Reason Stop Dose Admin Albuterol 2.5 mg 05/23/19 12:58 05/23/19 13:04 Proventil Neb Soln NEB 05/23/19 12:59 2.5 mg ONETIME ONE Administration - Re-Assessments/Exams Free Text/Narrative Re-Assessment/Exam: 05/23/19 13:25 pt was given a albuterol neb and she felt much better. Departure - Departure Time of Disposition: 13:19 Disposition: Home, Self-Care 01 Condition: Fair Clinical Impression: Bronchospasm, Has run out of medications - Discharge Information Referrals: PCP,None [Primary Care Provider] - Forms: ED Department Discharge Care Plan Goals: refill albuterol inhaler andthe solution for the nebulizer, follow up appt with Danica Flores Sepsis Event Note - Evaluation Sepsis Screening Result: No Definite Risk - Focused Exam Vital Signs: Vital Signs Temp Pulse Resp BP Pulse Ox 05/23/19 13:08 36.6 C 88 16 174/96 H 94 L Date Exam was Performed: 05/23/19 Time Exam was Performed: 13:21 - My Orders Last 24 Hours: My Active Orders 05/23/19 12:59 RT Aerosol Therapy [RC] ASDIRECTED - Assessment/Plan Last 24 Hours: My Active Orders 05/23/19 12:59 RT Aerosol Therapy [RC] ASDIRECTED
== END 2019-05-23 13:30 | disposition home or self-care (01) ==
LOC: JP.ED 12:40
DX: J45.909 Unspecified asthma, uncomplicated (principal); Z76.0 Encounter for issue of repeat prescription; Z79.899 Other long term (current) drug therapy; Z87.891 Personal history of nicotine dependence; Z88.0 Allergy status to penicillin; Z88.5 Allergy status to narcotic agent; Z91.010 Allergy to peanuts
CPT/HCPCS: 94640; 99284-25

== ENCOUNTER 2019-07-28 19:01 | Emergency (ER) | payer MEDICAID ==
[2019-07-28 19:40] VITALS: BP 145/91; PULSE 83
--- NOTE | 2019-07-28 20:21 | EDM.PDOC ---
ED HPI GENERAL MEDICAL PROBLEM - General Chief Complaint: Chest Pain Stated Complaint: RESPIRATORY Time Seen by Provider: 07/28/19 20:00 Source of Information: Reports: Patient History Limitations: Reports: No Limitations - History of Present Illness INITIAL COMMENTS - FREE TEXT/NARRATIVE: This is a 49-year-old female presents with multiple concerns. She reports that today she noticed a sore throat, some myalgias, and a mild cough. She believes she may have early form of bronchitis. She has no dyspnea. She has no fevers. No abdominal pain. No chest pain. She is a former smoker. No recent travel. No known COVID exposure. upper chest pain Pain Score (Numeric/FACES): 8 - Related Data Allergies Allergy/AdvReac Type Severity Reaction Status Date / Time Penicillins Allergy Severe Anaphylactic Verified 07/28/19 19:08 Shock peanut Allergy Airway Verified 07/28/19 19:08 Tightness morphine AdvReac Nausea and Verified 07/28/19 19:08 Vomiting Home Meds: Home Meds Albuterol Sulfate [Proair Hfa] 2 puff IH Q6HR PRN 02/04/13 [History] Cetirizine [ZyrTEC] 1 tab PO DAILY PRN 03/30/18 [History] Albuterol [Proventil Neb Soln] 1 dose INH Q4HR PRN 12/26/18 [History] Fluticasone/Salmeterol [Advair Hfa 230-21 Mcg Inhaler] 1 inh INH BID 07/28/19 [ History] Past Medical History - Past Health History Medical/Surgical History: Denies Medical/Surgical History HEENT History: Reports: Sinusitis Other HEENT History: brain surgery Cardiovascular History: Reports: Other (See Below) Other Cardiovascular History: abnormal EKG Respiratory History: Reports: Asthma, Bronchitis, Recurrent, COPD Gastrointestinal History: Reports: Other (See Below) Other Gastrointestinal History: ulcers Genitourinary History: Reports: Urinary Incontinence, Other (See Below) Other Genitourinary History: Bladder lift to reverse urinary incontinence 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: , Prolapsed Uterus Musculoskeletal History: Reports: Arthritis, Back Pain, Chronic, Fracture Neurological History: Reports: Brain Injury, Concussion, Seizure Psychiatric History: Reports: Anxiety, PTSD, Other (See Below) Endocrine/Metabolic History: Reports: Obesity/BMI 30+ Hematologic History: Reports: Blood Transfusion(s) Oncologic (Cancer) History: Reports: Ovarian - Infectious Disease History Infectious Disease History: Reports: Chicken Pox - Past Surgical History Head Surgeries/Procedures: Reports: None HEENT Surgical History: Reports: Naso-Sinus Surgery, Other (See Below) Other HEENT Surgeries/Procedures: BRAIN GI Surgical History: Reports: Hernia, Abdominal Female Surgical History: Reports: Section, Other (See Below) Other Female Surgeries/Procedures: bladder repair 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 Musculoskeletal Surgical History: Reports: ORIF, Other (See Below) Other Musculoskeletal Surgeries/Procedures:: R TIB/FIB FX WITH SURGICAL REPAIR Oncologic Surgical History: Reports: None Social & Family History - Family History Family Medical History: Noncontributory - Tobacco Use Smoking Status *Q: Never Smoker - Caffeine Use Caffeine Use: Reports: Coffee - Recreational Drug Use Recreational Drug Use: No ED ROS GENERAL - Review of Systems Review Of Systems: See Below Constitutional: Reports: No Symptoms HEENT: Reports: Throat Pain Respiratory: Reports: Cough Cardiovascular: Reports: No Symptoms Endocrine: Reports: No Symptoms GI/Abdominal: Reports: No Symptoms : Reports: No Symptoms Musculoskeletal: Reports: Muscle Pain Skin: Reports: No Symptoms Neurological: Reports: No Symptoms Psychiatric: Reports: No Symptoms Hematologic/Lymphatic: Reports: No Symptoms Immunologic: Reports: No Symptoms ED EXAM, GENERAL - Physical Exam Exam: See Below Exam Limited By: No Limitations General Appearance: Alert, No Apparent Distress Nose: Normal Inspection Throat/Mouth: Normal Inspection, Normal Oropharynx Head: Atraumatic, Normocephalic Respiratory/Chest: Lungs Clear Cardiovascular: Regular Rate, Rhythm GI/Abdominal: Soft, Non-Tender Back Exam: Normal Inspection Extremities: Normal Inspection Neurological: Alert, Oriented Psychiatric: Normal Affect, Normal Mood Skin Exam: Warm, Dry Course - Vital Signs Last Recorded V/S: Last Vital Signs Temp 36.1 C 07/28/19 19:13 Pulse 83 07/28/19 19:13 Resp 15 07/28/19 19:13 BP 145/91 H 07/28/19 19:13 Pulse Ox 96 07/28/19 19:13 - Re-Assessments/Exams Free Text/Narrative Re-Assessment/Exam: This is a 49-year-old female who presents with multiple concerns including cough , myalgias, sore throat, pictures consistent with a viral illness. She has normal vital signs. She is a normal exam. She denies any significant dyspnea. She is safe for discharge with supportive measures. We discussed isolation due to concerns for possible COVID-19. She does not meet criteria for testing. 07/28/19 21:40 Departure - Departure Time of Disposition: 20:19 Disposition: Home, Self-Care 01 Clinical Impression: Viral syndrome - Discharge Information Instructions: Viral Respiratory Infection, [id number] Referrals: Alma Flores CNM [Primary Care Provider] - Forms: ED Department Discharge Additional Instructions: Your symptoms are consistent with a viral infection. Please return to the emergency room for worsening shortness of breath as discussed. You should stay in isolation for 7 days after your cough ends, or 3 days after fever subsides. Sepsis Event Note - Evaluation Sepsis Screening Result: No Definite Risk - Focused Exam Vital Signs: Vital Signs Temp Pulse Resp BP Pulse Ox 07/28/19 19:13 36.1 C 83 15 145/91 H 96 07/28/19 19:11 36.1 C 83 15 145/91 H 96 Date Exam was Performed: 07/28/19 Time Exam was Performed: 21:36
== END 2019-07-28 20:48 | disposition home or self-care (01) ==
LOC: JP.ED 19:01
DX: B34.9 Viral infection, unspecified (principal); J44.9 Chronic obstructive pulmonary disease, unspecified; E66.9 Obesity, unspecified; Z88.0 Allergy status to penicillin; Z88.5 Allergy status to narcotic agent; Z91.018 Allergy to other foods
CPT/HCPCS: 99284

== ENCOUNTER 2019-11-07 11:19 | Emergency (ER) | payer MEDICAID ==
[2019-11-07 11:45] VITALS: BP 151/101; PULSE 80
--- NOTE | 2020-01-04 13:57 | EDM.PDOC ---
ED HPI GENERAL MEDICAL PROBLEM - General Chief Complaint: Bite:Animal, Insect Stated Complaint: LEFT FOOT BEE STING Time Seen by Provider: 11/07/19 11:53 Source of Information: Reports: Patient History Limitations: Reports: No Limitations Left Foot Pain Score (Numeric/FACES): 10 - Related Data Allergies Allergy/AdvReac Type Severity Reaction Status Date / Time Penicillins Allergy Severe Anaphylactic Verified 11/07/19 11:46 Shock peanut Allergy Airway Verified 11/07/19 11:46 Tightness morphine AdvReac Nausea and Verified 11/07/19 11:46 Vomiting Home Meds: Home Meds Albuterol Sulfate [Proair Hfa] 2 puff IH Q6HR PRN 02/04/13 [History] Cetirizine [ZyrTEC] 1 tab PO DAILY PRN 03/30/18 [History] Albuterol [Proventil Neb Soln] 1 dose INH Q4HR PRN 12/26/18 [History] Fluticasone Propion/Salmeterol [Advair Hfa 230-21 Mcg Inhaler] 1 inh INH BID 07/28/19 [History] Past Medical History - Past Health History Medical/Surgical History: Denies Medical/Surgical History HEENT History: Reports: Sinusitis Other HEENT History: brain surgery Cardiovascular History: Reports: Other (See Below) Other Cardiovascular History: abnormal EKG Respiratory History: Reports: Asthma, Bronchitis, Recurrent, COPD Gastrointestinal History: Reports: Other (See Below) Other Gastrointestinal History: ulcers Genitourinary History: Reports: Urinary Incontinence, Other (See Below) Other Genitourinary History: Bladder lift to reverse urinary incontinence 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: , Prolapsed Uterus Musculoskeletal History: Reports: Arthritis, Back Pain, Chronic, Fracture Neurological History: Reports: Brain Injury, Concussion, Seizure Psychiatric History: Reports: Anxiety, PTSD Endocrine/Metabolic History: Reports: Obesity/BMI 30+ Hematologic History: Reports: Blood Transfusion(s) Oncologic (Cancer) History: Reports: Ovarian - Infectious Disease History Infectious Disease History: Reports: Chicken Pox - Past Surgical History Head Surgeries/Procedures: Reports: None HEENT Surgical History: Reports: Naso-Sinus Surgery, Other (See Below) Other HEENT Surgeries/Procedures: BRAIN Cardiovascular Surgical History: Reports: None Respiratory Surgical History: Reports: None GI Surgical History: Reports: None Female Surgical History: Reports: Section, Other (See Below) Other Female Surgeries/Procedures: bladder repair 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 Musculoskeletal Surgical History: Reports: ORIF, Other (See Below) Other Musculoskeletal Surgeries/Procedures:: R TIB/FIB FX WITH SURGICAL REPAIR Oncologic Surgical History: Reports: None Social & Family History - Family History Family Medical History: Noncontributory - Tobacco Use Smoking Status *Q: Former Smoker Used Tobacco, but Quit: Yes Month/Year Tobacco Last Used: 2018 - Caffeine Use Caffeine Use: Reports: Coffee, Tea - Alcohol Use Days Per Week of Alcohol Use: 1 Number of Drinks Per Day: 1 Total Drinks Per Week: 1 - Recreational Drug Use Recreational Drug Use: No ED ROS GENERAL - Review of Systems Review Of Systems: See Below Constitutional: Denies: Fever, Chills, Diaphoresis HEENT: Reports: No Symptoms Respiratory: Reports: No Symptoms Cardiovascular: Reports: No Symptoms GI/Abdominal: Reports: No Symptoms Skin: Reports: Other (Edema foot) ED EXAM, ANIMAL BITE - Physical Exam Exam: See Below Exam Limited By: No Limitations General Appearance: Alert, WD/WN, No Apparent Distress Respiratory/Chest: No Respiratory Distress, Lungs Clear Cardiovascular: Normal Peripheral Pulses, Regular Rate, Rhythm Skin Exam: Other (Has edema of the left foot. No bee sting or was noted.) Course - Vital Signs Text/Narrative:: Patient has a localized bee sting. There is no signs of anaphylaxis. It was treated with Benadryl. The patient will follow-up with her primary care provider. Last Recorded V/S: Last Vital Signs Temp 35.4 C L 11/07/19 11:41 Pulse 80 11/07/19 11:41 Resp 16 11/07/19 11:41 BP 151/101 H 11/07/19 11:41 Pulse Ox 96 11/07/19 11:41 Departure - Departure Time of Disposition: 12:00 Disposition: Home, Self-Care 01 Clinical Impression: Bee sting allergy - Discharge Information *PRESCRIPTION DRUG MONITORING PROGRAM REVIEWED*: No *COPY OF PRESCRIPTION DRUG MONITORING REPORT IN PATIENT ANTONIO: No Instructions: Animal Bite, Adult, [id number] Referrals: Alma Flores CNM [Primary Care Provider] - Forms: ED Department Discharge Additional Instructions: Take Benadryl 25-50 mg every 6 hours as needed for itching and swelling. E levate your left foot and use ice periodically to reduce pain and swelling. Take Tylenol or ibuprofen as needed for pain. Use the EpiPen as needed for bee stings to prevent swelling and breathing problems. Follow-up with your doctor as needed. Fill the prescription for cephalexin in a few days if you notice your redness is not improving. Sepsis Event Note (ED) - Evaluation Sepsis Screening Result: No Definite Risk
== END 2019-11-07 13:10 | disposition home or self-care (01) ==
LOC: JP.ED 11:19
DX: T63.441A Toxic effect of venom of bees, accidental (unintentional), initial encounter (principal); J44.9 Chronic obstructive pulmonary disease, unspecified; E66.9 Obesity, unspecified; Z68.34 Body mass index [BMI] 34.0-34.9, adult; Z88.0 Allergy status to penicillin; Z91.010 Allergy to peanuts; Z88.5 Allergy status to narcotic agent; Z79.899 Other long term (current) drug therapy
CPT/HCPCS: 99282

== ENCOUNTER 2020-06-30 20:46 | Emergency (ER) | payer MEDICAID ==
[2020-06-30 20:58] VITALS: BP 187/98; PULSE 87
[2020-06-30] MEDS ORDERED: HYDROmorphone 1 MG/ML Syringe IM ONE (21:37)
[2020-06-30] MEDS ORDERED: Ondansetron 4 MG Tab.DIS PO ONE (21:38)
--- NOTE | 2020-06-30 22:51 | EDM.PDOC ---
ED HPI GENERAL MEDICAL PROBLEM - General Chief Complaint: Lower Extremity Injury/Pain Stated Complaint: PAIN POST SURGERY Time Seen by Provider: 06/30/20 21:28 Source of Information: Reports: Patient History Limitations: Reports: No Limitations - History of Present Illness INITIAL COMMENTS - FREE TEXT/NARRATIVE: Corina is a 50-year-old female presenting to the ED for markedly increased right ankle pain. She recently underwent an ankle replacement done by orthopedics at [facility] last (1 week ago) and was seen 2 days ago for her follow-up where they applied a new cast. The patient states that the nurse applied the cast and it was a little snug but over the course of the last 2 days it has become tight and is causing some rubbing on the heel as well as increased pain in the ankle and foot. She has been taking her hydrocodone but it has been inadequate to control her pain and she comes into the ED with 10 out of 10 pain. Although the toes are swollen, the capillary refill is a little sluggish at 3 seconds. She does have distal sensation in the toes and there is no significant cyanosis. The toes are warm. She denies any trauma to the foot. She has been ambulating with the use of a walker. She has been trying to keep the foot elevated as much as possible. She felt the pain was too extreme to tolerate a trip to [facility] and came to our ER instead. Does have a history significant for tibial a fibular fracture requiring hardware a number of years ago. The hardware was subsequently removed about 2 years ago and the patient unfortunately had an injury to her foot and was seen by the orthopedist at [facility] who I done the previous surgeries and found to have a small nondisplaced fracture and severe arthritic changes of the ankle. Ultimately decided to do an ankle joint replacement which is what the patient underwent last week. Right Ankle Pain Score (Numeric/FACES): 10 - Related Data Allergies Allergy/AdvReac Type Severity Reaction Status Date / Time Penicillins Allergy Severe Anaphylactic Verified 06/30/20 21:13 Shock peanut Allergy Airway Verified 06/30/20 21:13 Tightness morphine AdvReac Nausea and Verified 06/30/20 21:13 Vomiting Home Meds: Home Meds Albuterol Sulfate [Proair Hfa] 2 puff IH Q6HR PRN 02/04/13 [History] Albuterol [Proventil Neb Soln] 1 dose INH Q4HR PRN 12/26/18 [History] Fluticasone Propion/Salmeterol [Advair Hfa 230-21 Mcg Inhaler] 1 inh INH BID 07/28/19 [History] Hydrocodone/Acetaminophen [Hydrocodon-Acetaminophen 5-325] 1 tab PO Q6H 06/30/20 [History] Montelukast [Singulair] 1 tab PO DAILY 06/30/20 [History] hydrOXYzine HCL [hydrOXYzine] 1 tab PO Q6H 06/30/20 [History] Past Medical History - Past Health History Medical/Surgical History: Denies Medical/Surgical History HEENT History: Reports: Sinusitis Other HEENT History: brain surgery Cardiovascular History: Reports: Other (See Below) Other Cardiovascular History: abnormal EKG Respiratory History: Reports: Asthma, Bronchitis, Recurrent, COPD Gastrointestinal History: Reports: Other (See Below) Other Gastrointestinal History: ulcers Genitourinary History: Reports: Urinary Incontinence, Other (See Below) Other Genitourinary History: Bladder lift to reverse urinary incontinence POST CLOSER History: Reports: , Prolapsed Uterus Musculoskeletal History: Reports: Arthritis, Back Pain, Chronic, Fracture Neurological History: Reports: Brain Injury, Concussion, Seizure Psychiatric History: Reports: Anxiety, PTSD Endocrine/Metabolic History: Reports: Obesity/BMI 30+ Hematologic History: Reports: Blood Transfusion(s) Oncologic (Cancer) History: Reports: Ovarian - Infectious Disease History Infectious Disease History: Reports: Chicken Pox - Past Surgical History Head Surgeries/Procedures: Reports: None HEENT Surgical History: Reports: Naso-Sinus Surgery, Other (See Below) Other HEENT Surgeries/Procedures: BRAIN Cardiovascular Surgical History: Reports: None Respiratory Surgical History: Reports: None GI Surgical History: Reports: None Female Surgical History: Reports: Section, Other (See Below) Other Female Surgeries/Procedures: bladder repair 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 Other Neurological Surgeries/Procedures: craniotomy- removed part of skull to relieve pressure (1990) Musculoskeletal Surgical History: Reports: ORIF, Other (See Below) Other Musculoskeletal Surgeries/Procedures:: R TIB/FIB FX WITH SURGICAL REPAIR Oncologic Surgical History: Reports: None Other Oncologic Surgeries/Procedures: skin removed right hand ffor possible skin CA Social & Family History - Family History Family Medical History: No Pertinent Family History - Tobacco Use Tobacco Use Status *Q: Current Every Day Tobacco User Years of Tobacco use: 22 Packs/Tins Daily: 0.5 - Caffeine Use Caffeine Use: Reports: Coffee - Alcohol Use Days Per Week of Alcohol Use: 2 Number of Drinks Per Day: 2 Total Drinks Per Week: 4 - Recreational Drug Use Recreational Drug Use: No Review of Systems - Review of Systems Review Of Systems: See Below Constitutional: Reports: No Symptoms Eyes: Reports: No Symptoms Ears: Reports: No Symptoms Nose: Reports: No Symptoms Mouth/Throat: Reports: No Symptoms Respiratory: Reports: No Symptoms Cardiovascular: Reports: No Symptoms GI/Abdominal: Reports: No Symptoms Genitourinary: Reports: No Symptoms Musculoskeletal: Reports: Foot Pain, Joint Pain (Severe right ankle pain), Other (Swelling of the foot and toes on the right) Skin: Reports: No Symptoms Neurological: Reports: No Symptoms Psychiatric: Reports: No Symptoms ED EXAM, GENERAL - Physical Exam Exam: See Below Exam Limited By: No Limitations General Appearance: Alert, Moderate Distress Extremities: Pedal Edema (3+ pedal edema on the right. Decreased capillary refill at 3 seconds.) Neurological: Alert, Oriented, No Motor/Sensory Deficits Psychiatric: Normal Affect, Normal Mood Skin Exam: Warm, Dry ED TRAUMA EXTREMITY PROCEDURES - Splinting Right Lower Extremity Splint Site: Right lower leg from upper calf to toes. Pre-Procedure NV Status: Normal Post-Procedure NV Status: Normal Splint Material: Fiberglass Splint Design: Other (A short leg cast was applied using 3 inch fiberglass splinting material. The previous cast was on too tight causing marked increase in pain in the foot which is quite swollen. I therefore remove the previous cast, applied new dressings, tubing, padding, and casting material.) Applied & Form Fitted By: Provider Provider Post-Splint Application NV Check: NV Status Normal, Good Position Complications: No Course - Vital Signs Last Recorded V/S: Last Vital Signs Temp 36.2 C 06/30/20 21:06 Pulse 87 06/30/20 21:06 Resp 16 06/30/20 21:06 BP 187/98 H 06/30/20 21:06 Pulse Ox 95 06/30/20 21:06 - Orders/Labs/Meds Meds: Medications Discontinued Medications Generic Name Dose Route Start Last Admin Trade Name Abdullahi PRN Reason Stop Dose Admin Hydromorphone HCl 1 mg 06/30/20 21:37 06/30/20 22:00 Dilaudid IM 06/30/20 21:38 1 mg ONETIME ONE Administration Ondansetron HCl 4 mg 06/30/20 21:38 06/30/20 22:00 Zofran Odt PO 06/30/20 21:39 4 mg ONETIME ONE Administration - Re-Assessments/Exams Free Text/Narrative Re-Assessment/Exam: 06/30/20 22:20 the patient has slightly sluggish capillary refill in the toes distal to the cast and has significant swelling of the foot and toes. There is not much padding at least at the foot level and the patient states that she can feel her foot move inside the cast which may be causing part to the heel pain if she is abrading the heel. After discussion and thought we elected to remove the previous cast which was done using the cast saw and cast splitter. The padding and dressing were carefully removed as well. The surgical wounds are clean, dry, and intact. There is significant pedal edema at 3-4+ suggesting that the swelling is likely due to gravity dependent edema. There is no evidence for any erythema or focal tenderness to indicate DVT and the patient is on an aspirin daily as a preventive measure. New 4 x 4's were applied over the surgical dressing and secured with Curlex. An adequate amount of padding was then applied and the cast was reapplied using 3 inch fiberglass casting material. The patient was neurovascularly intact before and after the procedure and tolerated the application without incident. Departure - Departure Time of Disposition: 23:20 Disposition: Home, Self-Care 01 Clinical Impression: Acute right ankle pain, Pedal edema - Discharge Information *PRESCRIPTION DRUG MONITORING PROGRAM REVIEWED*: Not Applicable *COPY OF PRESCRIPTION DRUG MONITORING REPORT IN PATIENT ANTONIO: Not Applicable Instructions: Cast or Splint Care, Adult, [id number], Edema, [id number], Ankle Pain Referrals: Alma Flores CNM [Primary Care Provider] - Forms: ED Department Discharge Care Plan Goals: Follow-up with your orthopedic surgeon in [place]. Return to the ED should you develop any numbness, tingling, pallor or blueness to the toes, increased swelling, or increased pain. Sepsis Event Note (ED) - Evaluation Sepsis Screening Result: No Definite Risk - Focused Exam Vital Signs: Vital Signs Temp Pulse Resp BP Pulse Ox 06/30/20 21:06 36.2 C 87 16 187/98 H 95 06/30/20 20:56 36.2 C 87 16 187/98 H 95 - Problem List & Annotations (1) Acute right ankle pain SNOMED Code(s): 20944568908458 Code(s): M25.571 - PAIN IN RIGHT ANKLE AND JOINTS OF RIGHT FOOT Status: Acute Priority: Medium Current Visit: Yes (2) Pedal edema SNOMED Code(s): 857993345 Code(s): R60.0 - LOCALIZED EDEMA Status: Acute Priority: Medium Current Visit: Yes - Problem List Review Problem List Initiated/Reviewed/Updated: Yes
== END 2020-06-30 23:43 | disposition home or self-care (01) ==
LOC: JP.ED 20:46
DX: M25.571 Pain in right ankle and joints of right foot (principal); R60.0 Localized edema; J44.9 Chronic obstructive pulmonary disease, unspecified; E66.9 Obesity, unspecified; Z72.0 Tobacco use; Z88.0 Allergy status to penicillin; Z91.010 Allergy to peanuts; Z88.5 Allergy status to narcotic agent; Z79.899 Other long term (current) drug therapy
CPT/HCPCS: 29515; 96372; 99283; A9270; J1170

== ENCOUNTER 2020-07-24 12:33 | Emergency (ER) | payer MEDICAID ==
[2020-07-24 12:51] VITALS: BP 152/92; PULSE 90
--- NOTE | 2020-07-24 13:05 | EDM.PDOC ---
ED HPI GENERAL MEDICAL PROBLEM - General Chief Complaint: Lower Extremity Injury/Pain Stated Complaint: RASH INCISION LEG (R) Time Seen by Provider: 07/24/20 12:50 Source of Information: Reports: Patient, Old Records History Limitations: Reports: No Limitations - History of Present Illness INITIAL COMMENTS - FREE TEXT/NARRATIVE: 50 yo female recovering from an ankle replacement presents with onset Saturday of an itchy rash to the foot and ankle that was operated on. Her wound is almost completely healed. Onset: Gradual Onset Date: 07/22/20 Duration: Day(s): (2+), Getting Worse Location: Reports: Lower Extremity, Right Quality: Reports: Other (pruritic) Severity: Moderate Improves with: Reports: None Worsens with: Reports: Other (unsure) Context: Reports: Other (See HPI) Associated Symptoms: Reports: No Other Symptoms Treatments PERSONNEL MONITOR: Reports: Other (see below) (none) - Related Data Allergies Allergy/AdvReac Type Severity Reaction Status Date / Time Penicillins Allergy Severe Anaphylactic Verified 07/24/20 12:47 Shock peanut Allergy Airway Verified 07/24/20 12:47 Tightness morphine AdvReac Nausea and Verified 07/24/20 12:47 Vomiting Home Meds: Home Meds Albuterol Sulfate [Proair Hfa] 2 puff IH Q6HR PRN 02/04/13 [History] Albuterol [Proventil Neb Soln] 1 dose INH Q4HR PRN 12/26/18 [History] Fluticasone Propion/Salmeterol [Advair Hfa 230-21 Mcg Inhaler] 1 inh INH BID 07/28/19 [History] Montelukast [Singulair] 1 tab PO DAILY 06/30/20 [History] Triamcinolone Acetonide [Triamcinolone Acetonide 0.1% Crm] 1 applic TOP BID PRN #80 gm 07/24/20 [Rx] Past Medical History - Past Health History Medical/Surgical History: Denies Medical/Surgical History HEENT History: Reports: Sinusitis Other HEENT History: brain surgery Cardiovascular History: Reports: Other (See Below) Other Cardiovascular History: abnormal EKG Respiratory History: Reports: Asthma, Bronchitis, Recurrent, COPD Gastrointestinal History: Reports: Other (See Below) Other Gastrointestinal History: ulcers Genitourinary History: Reports: Urinary Incontinence, Other (See Below) Other Genitourinary History: Bladder lift to reverse urinary incontinence EXHIBIT SPECIALIST History: Reports: , Prolapsed Uterus Musculoskeletal History: Reports: Arthritis, Back Pain, Chronic, Fracture Neurological History: Reports: Brain Injury, Concussion, Seizure Psychiatric History: Reports: Anxiety, PTSD Endocrine/Metabolic History: Reports: Obesity/BMI 30+ Hematologic History: Reports: Blood Transfusion(s) Oncologic (Cancer) History: Reports: Ovarian - Infectious Disease History Infectious Disease History: Reports: Chicken Pox - Past Surgical History Head Surgeries/Procedures: Reports: None HEENT Surgical History: Reports: Naso-Sinus Surgery, Other (See Below) Other HEENT Surgeries/Procedures: BRAIN Cardiovascular Surgical History: Reports: None Respiratory Surgical History: Reports: None GI Surgical History: Reports: None Female Surgical History: Reports: Section, Other (See Below) Other Female Surgeries/Procedures: bladder repair 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 Other Neurological Surgeries/Procedures: craniotomy- removed part of skull to relieve pressure (1990) Musculoskeletal Surgical History: Reports: ORIF, Other (See Below) Other Musculoskeletal Surgeries/Procedures:: R TIB/FIB FX WITH SURGICAL REPAIR Oncologic Surgical History: Reports: None Other Oncologic Surgeries/Procedures: skin removed right hand ffor possible skin CA Social & Family History - Family History Family Medical History: No Pertinent Family History - Tobacco Use Tobacco Use Status *Q: Never Tobacco User - Caffeine Use Caffeine Use: Reports: Coffee - Recreational Drug Use Recreational Drug Use: No Review of Systems - Review of Systems Review Of Systems: See Below Constitutional: Reports: No Symptoms Skin: Reports: Rash (to ankle and foot on right. Not pustular. Small red dots to area under her dressing. ), Erythema, Wound (well healed surgical wound) ED EXAM, GENERAL - Physical Exam Exam: See Below Exam Limited By: No Limitations General Appearance: Alert, WD/WN, No Apparent Distress Neurological: Alert, Oriented, CN II-XII Intact, Normal Cognition, No Motor/Sensory Deficits Psychiatric: Normal Affect, Normal Mood Skin Exam: Warm, Dry, Intact, Rash (to area under her dressing. Non-pustular. No drainage. ), Wound/Incision (well healed). No: Normal Color, No Rash, Incr eased Warmth, Lymphangitis, Petechiae Course - Vital Signs Last Recorded V/S: Last Vital Signs Temp 36.5 C 07/24/20 12:45 Pulse 90 07/24/20 12:45 Resp 16 07/24/20 12:45 BP 152/92 H 07/24/20 12:45 Pulse Ox 97 07/24/20 12:45 Departure - Departure Time of Disposition: 13:08 Disposition: Home, Self-Care 01 Condition: Good Clinical Impression: Pruritic rash - Discharge Information *PRESCRIPTION DRUG MONITORING PROGRAM REVIEWED*: Not Applicable *COPY OF PRESCRIPTION DRUG MONITORING REPORT IN PATIENT ANTONIO: Not Applicable Prescriptions: Triamcinolone Acetonide [Triamcinolone Acetonide 0.1% Crm] 1 applic TOP BID PRN #80 gm PRN Reason: Rash Instructions: Rash, Adult, [id number] Referrals: Alma Flores CNM [Primary Care Provider] - Forms: ED Department Discharge Additional Instructions: Use Triamcinolone cream twice a day for no more than a week. Take diphenhydramine at night for itching, 50-75 mg, and a smaller dose 25 mg during the day every 4 hrs. Elevate your leg above your heart as much as possible. Wear a knee high white cotton sock on that leg when wearing your leg brace. Recheck later in the week with your provider as needed. Sepsis Event Note (ED) - Evaluation Sepsis Screening Result: No Definite Risk - Focused Exam Vital Signs: Vital Signs Temp Pulse Resp BP Pulse Ox 07/24/20 12:45 36.5 C 90 16 152/92 H 97
== END 2020-07-24 13:24 | disposition home or self-care (01) ==
LOC: JP.ED 12:33
DX: L29.9 Pruritus, unspecified (principal); J44.9 Chronic obstructive pulmonary disease, unspecified; E66.9 Obesity, unspecified; Z68.35 Body mass index [BMI] 35.0-35.9, adult; Z96.661 Presence of right artificial ankle joint; Z91.010 Allergy to peanuts; Z88.5 Allergy status to narcotic agent; Z88.0 Allergy status to penicillin; Z79.899 Other long term (current) drug therapy
CPT/HCPCS: 99282

== ENCOUNTER 2021-12-18 20:51 | Emergency (ER) | payer MEDICAID ==
[2021-12-18 21:56] VITALS: BP 144/81; PULSE 69
[2021-12-18 22:53] LABS: ESTIMATED GFR 110 mL/min (>60)
[2021-12-18] MEDS ORDERED: Albuterol 0.083% 2.5 MG/3 ML Neb Soln NEB ONE (23:38)
== END 2021-12-18 23:51 | disposition home or self-care (01) ==
LOC: JP.ED 20:51
DX: J40 Bronchitis, not specified as acute or chronic (principal); J01.90 Acute sinusitis, unspecified; E66.9 Obesity, unspecified; Z68.34 Body mass index [BMI] 34.0-34.9, adult; Z88.0 Allergy status to penicillin; Z91.010 Allergy to peanuts; Z88.6 Allergy status to analgesic agent; Z79.899 Other long term (current) drug therapy; Z20.822 Contact with and (suspected) exposure to COVID-19
CPT/HCPCS: 36415; 71045; 71045-26; 80053; 84145; 85025; 85379; 86140; 99283; U0002

== ENCOUNTER 2022-02-15 18:36 | Emergency (ER) | payer MEDICAID ==
[2022-02-15 19:05] VITALS: BP 155/88; PULSE 84
[2022-02-15 20:14] LABS: ESTIMATED GFR 110 mL/min (>60)
[2022-02-15 20:41] LABS: CORONAVIRUS COVID-19 NAA NEGATIVE (NEGATIVE)
== END 2022-02-15 21:13 | disposition home or self-care (01) ==
LOC: JP.ED 18:36
DX: J20.9 Acute bronchitis, unspecified (principal); J30.2 Other seasonal allergic rhinitis; E66.9 Obesity, unspecified; Z68.34 Body mass index [BMI] 34.0-34.9, adult; Z88.0 Allergy status to penicillin; Z91.010 Allergy to peanuts; Z88.6 Allergy status to analgesic agent; Z87.891 Personal history of nicotine dependence; Z20.822 Contact with and (suspected) exposure to COVID-19
CPT/HCPCS: 0241U; 36415; 71046; 80053; 85025; 86140; 99283

== ENCOUNTER 2023-12-01 15:25 | Emergency (ER) | payer BC, MEDICAID, OTHER ==
[2023-12-01 15:49] VITALS: BP 143/76; PULSE 83
[2023-12-01 17:08] LABS: BASOPHILS ABSOLUTE AUTO 0.08 K/uL (0.00-0.10); BASOPHILS PERCENT AUTO 0.9 % (0.1-1.3); EOSINOPHILS PERCENT AUTO 1.1 % (0.0-5.4); HEMATOCRIT 38.6 % (34.3-46.0); HEMOGLOBIN 12.8 g/dL (11.2-15.5); IMMATURE GRAN PERCENT AUTO 0.2 % (0.0-0.7); LYMPHOCYTES ABSOLUTE AUTO 1.94 K/uL (0.8-3.3); LYMPHOCYTES PERCENT AUTO 21.6 % (11.4-47.7); MEAN CORPUSCULAR HEMOGLOBIN 28.2 pg (31.6-35.5); MEAN CORPUSCULAR HGB CONC 33.2 g/dL (31.6-35.5); MONOCYTES ABSOLUTE AUTO 0.64 K/uL (0.20-0.90); MONOCYTES PERCENT AUTO 7.1 % (3.3-12.6); NEUTROPHILS PERCENT AUTO 69.1 % (40.0-78.1); PLATELET COUNT,PLT 280 K/uL (130-375); RED BLOOD CELL COUNT 4.54 M/uL (3.77-5.24)
[2023-12-01 17:11] LABS: IMMATURE GRAN ABSOLUTE AUTO 0.02 K/uL (0.00-0.23)
[2023-12-01 17:34] LABS: A/G RATIO 1.1 (1.2-2.2); ALANINE AMINOTRANSFERASE,ALT 32 U/L (12-78); ALKALINE PHOSPHATASE 118 U/L (46-116); ASPARTATE AMNIOTRANSFERASE,AST 18 U/L (15-37); BILIRUBIN TOTAL 0.6 mg/dL (0.2-1.0); BLOOD UREA NITROGEN,BUN 12 mg/dL (7-18); C-REACTIVE PROTEIN 0.59 mg/dL (<0.50); CARBON DIOXIDE,CO2 27 mmol/L (21-32); CREATININE 0.8 mg/dL (0.6-1.0); EST CRCL DRUG DOSING (CG) 71.84 mL/min; ESTIMATED GFR 89 mL/min (>60); GLUCOSE RANDOM 104 mg/dL (74-106); PROTEIN TOTAL,TP 7.6 g/dL (6.4-8.2)
[2023-12-01 17:37] LABS: POTASSIUM,K 3.5 mmol/L (3.6-5.2); SODIUM,NA 142 mmol/L (140-148)
[2023-12-01 17:48] LABS: LYME AB IgG Negative (Negative); LYME AB IgM Negative (Negative)
[2023-12-01] MEDS: Sodium Chloride 0.9% 1,000 ML IV ONE (17:59)
[2023-12-05 07:10] LABS: ANAPLASMA PHAGOCYTOPHILUM PCR Not Detected; BABESIA MICROTI BY PCR Not Detected; BABESIA SPECIES BY PCR Not Detected; EHRLICHIA CHAFFEENSIS BY PCR Not Detected; EHRLICHIA EWINGII/CANIS BY PCR Not Detected; EHRLICHIA MURIS-LIKE BY PCR Not Detected
== END 2023-12-01 19:01 | disposition home or self-care (01) ==
LOC: JP.ED 15:25
DX: J20.9 Acute bronchitis, unspecified (principal); J32.9 Chronic sinusitis, unspecified; J44.0 Chronic obstructive pulmonary disease with (acute) lower respiratory infection; E66.9 Obesity, unspecified; Z79.51 Long term (current) use of inhaled steroids; Z87.891 Personal history of nicotine dependence; Z88.0 Allergy status to penicillin; Z88.5 Allergy status to narcotic agent; Z91.010 Allergy to peanuts; Z68.33 Body mass index [BMI] 33.0-33.9, adult
CPT/HCPCS: 36415; 71046; 80053; 83605; 84145; 85025; 86140; 86618; 87468; 87469; 87484; 87635; 87798; 96360; 99285; J7030; U0002

== ENCOUNTER 2024-08-27 22:07 | Emergency (ER) | payer OTHER, MEDICAID ==
[2024-08-27] MEDS: methylPREDNISolone Sodium Succinate 125 MG/2 ML SDV IVPUSH ONE (22:15)
[2024-08-27] MEDS: diphenhydrAMINE 50 MG/ML SDV IVPUSH ONE (22:18)
[2024-08-27 22:24] LABS: BASOPHILS ABSOLUTE AUTO 0.07 K/uL (0.00-0.10); BASOPHILS PERCENT AUTO 0.9 % (0.1-1.3); EOSINOPHILS ABSOLUTE AUTO 0.25 K/uL (0.00-0.40); EOSINOPHILS PERCENT AUTO 3.2 % (0.0-5.4); HEMATOCRIT 41.8 % (34.3-46.0); HEMOGLOBIN 13.7 g/dL (11.2-15.5); IMMATURE GRAN ABSOLUTE AUTO 0.01 K/uL (0.00-0.23); IMMATURE GRAN PERCENT AUTO 0.1 % (0.0-0.7); LYMPHOCYTES ABSOLUTE AUTO 3.33 K/uL (0.8-3.3); LYMPHOCYTES PERCENT AUTO 42.6 % (11.4-47.7); MEAN CORPUSCULAR HEMOGLOBIN 28.6 pg (31.6-35.5); MEAN CORPUSCULAR HGB CONC 32.8 g/dL (31.6-35.5); MEAN CORPUSCULAR VOLUME 87.3 fL (81.4-99.0); MONOCYTES ABSOLUTE AUTO 0.73 K/uL (0.20-0.90); MONOCYTES PERCENT AUTO 9.3 % (3.3-12.6); NEUTROPHILS ABSOLUTE AUTO 3.42 K/uL (1.0-7.6); NEUTROPHILS PERCENT AUTO 43.9 % (40.0-78.1); PLATELET COUNT,PLT 269 K/uL (130-375); RED BLOOD CELL COUNT 4.79 M/uL (3.77-5.24); WHITE BLOOD CELL COUNT,WBC 7.8 K/uL (3.2-11.0)
[2024-08-27] MEDS: Sodium Chloride 0.9% 10 ML Syringe FLUSH PRN (22:39)
[2024-08-27] MEDS: Ondansetron 4 MG/2 ML SDV IVPUSH ONE (22:39)
[2024-08-27] MEDS: Famotidine 20 MG/2 ML SDV IVPUSH ONE (22:40)
[2024-08-27 22:49] LABS: ANION GAP 11.1 mmol/L (5.0-14.0); CALCIUM 9.8 mg/dL (8.5-10.1); CREATININE 0.8 mg/dL (0.6-1.0); EST CRCL DRUG DOSING (CG) 71.03 mL/min; POTASSIUM,K 3.6 mmol/L (3.6-5.2); TROPONIN I HIGH SENSITIVITY 8.7 pg/mL (<=60.3)
[2024-08-27 23:06] VITALS: BP 121/70; PULSE 72
== END 2024-08-27 23:45 | disposition home or self-care (01) ==
LOC: JP.ED 22:07
DX: T78.1XXA Other adverse food reactions, not elsewhere classified, initial encounter (principal); E66.9 Obesity, unspecified; J45.909 Unspecified asthma, uncomplicated; Z88.0 Allergy status to penicillin; Z88.5 Allergy status to narcotic agent; Z91.018 Allergy to other foods; Z91.010 Allergy to peanuts; Z79.899 Other long term (current) drug therapy; Z68.32 Body mass index [BMI] 32.0-32.9, adult; X58.XXXA Exposure to other specified factors, initial encounter
CPT/HCPCS: 36415; 80048; 84484; 85025; 93005; 96374; 96375; 99285; J1200; J2405; J2919